=== PATIENT | female | born 1990 | race Caucasian/White ===

== ENCOUNTER 2023-09-20 21:02 | Outpatient (CLI) | payer BC, SELFPAY ==
[2023-09-20 21:21] VITALS: PULSE 77; O2SAT 97
[2023-09-20 21:22] VITALS: BP 133/82; PULSE 65; RESP 14; TEMP 36.8
[2023-09-20 21:29] VITALS: BMI 29.1
[2023-09-20 23:00] VITALS: PULSE 69; O2SAT 99
--- NOTE | 2023-09-21 07:23 | OB.TRI.NOTE ---
HPI - General HPI Narrative FAVIAN MEDLEY, is a 32 F who presents for contractions. Patient reports starting contractions ealier in the day which continued to progress in strength and frequency. Denies any loss of fluid or vaginal bleeding. Maternal Data Information MAYELIN Calculator Estimated Delivery Date Method Current WG Current Estimate 09/28/23 Manual 39w 0d PFSH PFSH Home Medications ?Medication ?Instructions ?Recorded ?Last Taken ?Type aspirin 81 mg tablet,delayed 81 mg PO DAILY 09/20/23 Unknown History release (Adult Aspirin Regimen) vit no.95-ferrous 1 tab PO DAILY 09/20/23 Unknown History fumarate 28 mg-folic acid 800 mcg tablet ( Multivitamins) Allergy/AdvReac Type Severity Reaction Status Date / Time nitrous oxide Allergy Nausea Verified 09/20/23 21:26 ROS Eyes Eyes: Denies blurry vision Cardiovascular Cardiovascular: Reports none; Denies chest pain at rest, chest pain with activity or dizziness Respiratory/Chest Respiratory/Chest: Denies cough or dyspnea Gastrointestinal Gastrointestinal: Reports none and other; Denies diarrhea or vomiting Genitourinary Genitourinary: Denies dysuria Musculoskeletal Musculoskeletal: Reports none Integumentary Integumentary: Reports none; Denies rash Neurologic Neurologic: Denies dizziness, headache(s) or other visual disturbances Psychiatric Psychiatric: Reports none Physical Exam Const alert and no apparent distress General Appearance: cooperative Orientation / Consciousness: awake Exam Limitations: no limitations HEENT normocephalic Eyes General Eye: normal appearance of both eyes Neck full ROM Chest inspection of chest normal Resp normal respiratory effort and normal air movement Effort and Inspection: symmetric chest movement Auscultation: clear to auscultation bilaterally Cardio regular rate GI soft to palpation, non-tender and non-distended Inspection: and other Back/Spine normal ROM Extremity full ROM, normal capillary refill and no calf tenderness Skin no rashes or lesions noted Neuro oriented x3 and CN's II-XII intact bilaterally Psych mental status grossly normal NST FHR Rate Baby A Baseline: 135 Variability:: Moderate Accelerations:: 15 x 15 Decelerations:: None NST Reactive:: Yes FHR Category:: Category I Uterine Activity:: Irregular Assessment & Plan (1) 38 weeks gestation of : (2) Uterine contractions: PLAN: Plan NST reactive CE 1.5cm CE unchanged after extended monitoring D/C home with labor precautions and instructions to follow up in office this week
== END 2023-09-20 23:42 | disposition home or self-care (01) ==
LOC: WPOUT 21:11 → WP 21:12
PROVIDERS: Referring Provider Advanced Practice Midwife; Visit Provider Advanced Practice Midwife
DX: O47.1 False labor at or after 37 completed weeks of gestation (principal); Z79.82 Long term (current) use of aspirin; Z3A.38 38 weeks gestation of pregnancy
CPT/HCPCS: 59025; 59050; 99221; G0378

== ENCOUNTER 2023-09-22 03:20 | Inpatient (IN) | payer BC, SELFPAY ==
[2023-09-22] VITALS (64 sets, daily range): BP systolic 96–201; BP diastolic 51–148; PULSE 60–123; RESP 14–17; TEMP 36.1–37.9; O2SAT 93–100; BMI 29.2
[2023-09-22] MEDS: Lactated Ringers 1,000 ML 50 ML IV (01:15)
[2023-09-22] MEDS: Lactated Ringers 1,000 ML 999 ML IV (03:25)
[2023-09-22 03:34] LABS: Absolute Lymphocyte Count 1.65 X10^3/uL (0.83-4.51); Absolute Neutrophil Count 6.7 X10^3/uL (2.0-7.7); Basophil# 0.04 X10^3/uL; Basophil% 0.4 % (0-1); Eosinophil# 0.06 X10^3/uL; Eosinophils% 0.6 % (0-5); Hematocrit 39.4 % (37-47); Hemoglobin 12.7 g/dL (12.0-15.0); Lymphocyte # 1.65 X10^3/ul (0.83-4.51); Lymphocyte % 17.6 % (19-41); Mean Corp Hgb Conc 32.2 g/dL (32-36); Mean Corpuscular Hgb 28.5 pg (27.0-32.0); Mean Corpuscular Volume 88.3 fL (81-99); Mean Platelet Vol. 12.1 fl (6.2-12.0); Monocyte# 0.83 X10^3/uL; Monocyte% 8.9 % (0-10); NRBC Flagged by Analyzer 0 % (0-5); Neutrophil # 6.72 X10^3/uL (2.7-7.7); Platelet Count 231 K/mm3 (150-450); RBC Distribution Width CV 14.6 % (11.6-14.6); RBC Distribution Width SD 46.3 fl (35.1-43.9); Red Blood Count 4.46 M/mm3 (4.2-5.4); White Blood Count 9.4 K/mm3 (4.4-11.0)
[2023-09-22 04:00] LABS: Syphilis Antibodies Non-reactive
[2023-09-22] MEDS: fentaNYL-bupivacaine (epidural) 100 ML BAG EPIDURAL ×3 (04:02→14:14)
--- NOTE | 2023-09-22 06:24 | PCM.HP.OB ---
HPI - General General Date of Admission: 09/22/23 HPI Narrative FAVIAN MEDLEY, is a 32 F who presents at 39w1d in active labor. Maternal Data Information MAYELIN Calculator Estimated Delivery Date Method Current WG Current Estimate 09/28/23 Manual 39w 1d PFSH PFSH Medical History no medical history Home Medications ?Medication ?Instructions ?Recorded ?Last Taken ?Type aspirin 81 mg tablet,delayed 81 mg PO DAILY 09/20/23 Unknown History release (Adult Aspirin Regimen) vit no.95-ferrous 1 tab PO DAILY 09/20/23 Unknown History fumarate 28 mg-folic acid 800 mcg tablet ( Multivitamins) Allergy/AdvReac Type Severity Reaction Status Date / Time nitrous oxide Allergy Nausea Verified 09/22/23 01:22 Surgical History no surgical history Social History Smoking Status: Never smoker History Elective abortions Hx Para 0 Spontaneous abortions Hx # Term Pregnancies Ectopic pregnancies Hx # Pregnancies Multiple births # of living children NST FHR Rate Baby A Baseline: 140 Variability:: Minimal Accelerations:: 15 x 15 Decelerations:: None FHR Category:: Category II Uterine Activity:: Irregular Vital Signs Vital Signs Vital Signs: 09/22/23 01:13 09/22/23 01:13 09/22/23 01:14 Temperature Temperature Source Pulse Rate 70 Respiratory Rate Blood Pressure 131/89 H BP Systolic 131 BP Diastolic 89 Pulse Ox 99 09/22/23 01:14 09/22/23 01:14 09/22/23 01:14 Temperature Temperature Source Temporal Pulse Rate 66 Respiratory Rate 14 Blood Pressure BP Systolic BP Diastolic Pulse Ox 09/22/23 01:14 09/22/23 02:03 09/22/23 02:03 Temperature 98.0 F Temperature Source Pulse Rate 81 Respiratory Rate Blood Pressure BP Systolic BP Diastolic Pulse Ox 97 09/22/23 03:51 09/22/23 03:51 09/22/23 03:56 Temperature Temperature Source Pulse Rate 101 H 83 Respiratory Rate Blood Pressure BP Systolic BP Diastolic Pulse Ox 99 09/22/23 03:56 09/22/23 03:56 09/22/23 03:58 Temperature Temperature Source Pulse Rate Respiratory Rate 16 Blood Pressure 138/86 H BP Systolic 138 BP Diastolic 86 Pulse Ox 100 09/22/23 03:58 09/22/23 04:00 09/22/23 04:00 Temperature Temperature Source Pulse Rate 107 H 93 Respiratory Rate Blood Pressure 127/77 H BP Systolic 127 BP Diastolic 77 Pulse Ox 09/22/23 04:00 09/22/23 04:01 09/22/23 04:01 Temperature Temperature Source Pulse Rate 79 Respiratory Rate 16 Blood Pressure BP Systolic BP Diastolic Pulse Ox 99 09/22/23 04:04 09/22/23 04:04 09/22/23 04:05 Temperature Temperature Source Pulse Rate 90 Respiratory Rate 16 Blood Pressure 133/67 H BP Systolic 133 BP Diastolic 67 Pulse Ox 09/22/23 04:06 09/22/23 04:06 09/22/23 04:09 Temperature Temperature Source Pulse Rate 82 Respiratory Rate Blood Pressure 117/69 BP Systolic 117 BP Diastolic 69 Pulse Ox 100 09/22/23 04:09 09/22/23 04:09 09/22/23 04:09 Temperature Temperature Source Temporal Pulse Rate 83 Respiratory Rate 16 Blood Pressure BP Systolic BP Diastolic Pulse Ox 09/22/23 04:09 09/22/23 04:10 09/22/23 04:11 Temperature 98.1 F Temperature Source Pulse Rate 86 Respiratory Rate 16 Blood Pressure BP Systolic BP Diastolic Pulse Ox 09/22/23 04:11 09/22/23 04:15 09/22/23 04:16 Temperature Temperature Source Pulse Rate 73 Respiratory Rate 16 Blood Pressure BP Systolic BP Diastolic Pulse Ox 100 09/22/23 04:16 09/22/23 04:19 09/22/23 04:19 Temperature Temperature Source Pulse Rate 99 Respiratory Rate Blood Pressure 106/70 BP Systolic 106 BP Diastolic 70 Pulse Ox 99 09/22/23 04:21 09/22/23 04:21 09/22/23 04:21 Temperature Temperature Source Pulse Rate 69 Respiratory Rate 16 Blood Pressure BP Systolic BP Diastolic Pulse Ox 100 09/22/23 04:24 09/22/23 04:24 09/22/23 04:25 Temperature Temperature Source Pulse Rate 95 Respiratory Rate 16 Blood Pressure 110/73 BP Systolic 110 BP Diastolic 73 Pulse Ox 09/22/23 04:26 09/22/23 04:26 09/22/23 04:31 Temperature Temperature Source Pulse Rate 68 69 Respiratory Rate Blood Pressure BP Systolic BP Diastolic Pulse Ox 100 09/22/23 04:31 09/22/23 04:36 09/22/23 04:36 Temperature Temperature Source Pulse Rate 93 Respiratory Rate Blood Pressure BP Systolic BP Diastolic Pulse Ox 100 100 09/22/23 04:41 09/22/23 04:41 09/22/23 04:46 Temperature Temperature Source Pulse Rate 67 60 Respiratory Rate Blood Pressure BP Systolic BP Diastolic Pulse Ox 99 09/22/23 04:46 09/22/23 04:51 09/22/23 04:51 Temperature Temperature Source Pulse Rate 63 Respiratory Rate Blood Pressure BP Systolic BP Diastolic Pulse Ox 98 98 09/22/23 04:56 09/22/23 04:56 09/22/23 04:57 Temperature Temperature Source Pulse Rate 70 Respiratory Rate 16 Blood Pressure BP Systolic BP Diastolic Pulse Ox 99 09/22/23 04:58 09/22/23 04:58 09/22/23 05:58 Temperature Temperature Source Pulse Rate 83 73 Respiratory Rate Blood Pressure 107/60 BP Systolic 107 BP Diastolic 60 Pulse Ox 09/22/23 05:58 09/22/23 05:58 09/22/23 06:00 Temperature Temperature Source Pulse Rate Respiratory Rate Blood Pressure 96/51 L BP Systolic 96 BP Diastolic 51 Pulse Ox 93 97 09/22/23 06:00 09/22/23 06:00 Temperature Temperature Source Pulse Rate 61 Respiratory Rate 16 Blood Pressure BP Systolic BP Diastolic Pulse Ox Weight Weight: 176 lb Body Mass Index (BMI) 29.2 Physical Exam Const alert and oriented x3 General Appearance: cooperative Orientation / Consciousness: awake, oriented to person, oriented to place and oriented to time Exam Limitations: no limitations HEENT normocephalic Head and Scalp: normal to inspection, normocephalic and atraumatic Face and Sinus: normal facial exam Eyes General Eye: normal appearance of both eyes Neck full ROM Chest Chest: symmetrical chest wall rise Resp normal respiratory effort and normal air movement Auscultation: clear to auscultation bilaterally Cardio regular rate, regular rhythm, S1 normal heart sound, S2 normal heart sound, no murmurs, no rub, no gallops and no clicks GI normal to inspection, nondistended, normoactive bowel sounds and non-tender appearance of the vagina normal Bladder / Kidney Exam: no CVA tenderness Back/Spine normal ROM Extremity normal to inspection and full ROM Skin no rashes or lesions noted Neuro oriented x3 and moves all extremities Sensorium / Orientation: awake, alert and oriented to person Motor Exam: clonus absent Deep Tendon Reflexes: Rt Patellar (L4): 2+ and Lt Patellar (L4): 2+ Labs Labs Labs: Blood Type A POSITIVE Antibody Screen NEGATIVE Hct 39.4 % (37-47) Hgb 12.7 g/dL (12.0-15.0) Syphilis Total Ab Non-reactive GBS negative GC/CT negative HIV negative HBsAG negative HepC negative RPR negative Rubella immune 1hr GCT 122 normal A positive Assessment & Plan (1) Active labor at term: (2) 39 weeks gestation of : (3) Nulliparity: PLAN: Plan 1) Admit to labor and delivery 2) Routine labs 3) Continuous EFM 4) Epidural for pain management 5) GBS negative 6) Pitocin for contractions that have spaced out 7) collaborative physician and notified of patient above assessment, plan and status
[2023-09-22] MEDS: Lactated Ringers 1,000 ML 200 ML IV ×2 (09:09→14:14)
[2023-09-22] MEDS: Oxytocin 15 Units/NS 250ml 15 UNITS/250 ML IV.SOLN 2 UNITS IV (10:40)
--- NOTE | 2023-09-22 17:38 | EX.PCM.OBRPT ---
Assessment & Plan (1) (normal spontaneous vaginal delivery): (2) Lactating mother: Maternal Data Information MAYELIN Calculator Estimated Delivery Date Method Current WG Current Estimate 09/28/23 Manual 39w 1d Vaginal Delivery Maternal Presentation Maternal Presentation: Active Labor Operative Information Date of Procedure: 09/22/23 Pre-Operative Diagnosis: Active labor at term Post-Operative Diagnosis: Surgery / Procedure Performed: Spontaneous Vaginal Delivery Type of Anesthesia: Epidural Estimated Blood Loss: 300 ml Time of Delivery: 17:20 Findings Description of Procedure: Progressed to complete with urge to push. Epidural for pain management. of viable male infant over intact perineum. APGARS 8,9 respectively. Infant head delivered with body immediately forthcoming. Placed on maternal abdomen, strong cry. Mouth and nares suctioned for secretions. Pitocin started for active 3rd stage management. Cord doubly clamped and cut by FOB after pulsations ceased, delayed cord clamping. Placenta delivered intact via rose, 3 vessel cord intact. Perineum inspected and revealed intact. Fundus firm and hemostasis achieved. EBL 300ml. Mom and baby stable, planning to breastfeed. Family bonding well. notified of delivery. Presentation: Vertex Amniotic Membrane Rupture Type: Spontaneous Amniotic Fluid Description: Clear Placental Delivery Description: Spontaneous Placenta Disposition: [facility] Cord Vessel Description: 3 Vessels Cord Entanglement: Around neck x 1, loose Nuchal Cord Compression: Without compression Infant A Gender: Female (1 minute): 8 (5 minute): 9 Delayed Cord Clamping: Yes Post Vaginal Delivery Medications Given After Delivery: IV Pitocin Episiotomy Description: None Laceration: None Complication Complications: None
[2023-09-22] MEDS: Ibuprofen 600 MG Tablet PO ×2 (17:55→23:16)
[2023-09-22] MEDS: Oxytocin 15 Units/NS 250ml 15 UNITS/250 ML IV.SOLN 83 UNITS IV (17:58)
[2023-09-22] MEDS: SimETHICONE 80 MG Chewable Tablet PO (18:46)
--- NOTE | 2023-09-22 20:18 | NURSING ---
Epidural catheter removed, blue tip intact.
[2023-09-22] MEDS: 0.9% Saline Lock 10 ML Syringe IV (21:55)
[2023-09-23 00:26] VITALS: BP 108/63; PULSE 81; PULSE 85; RESP 16; TEMP 36.5; O2SAT 97
[2023-09-23 00:27] VITALS: PULSE 90; O2SAT 97
[2023-09-23 05:08] VITALS: BP 116/94; PULSE 84; RESP 16; TEMP 36.1; O2SAT 100
[2023-09-23 05:57] LABS: Absolute Lymphocyte Count 1.23 X10^3/uL (0.83-4.51); Absolute Neutrophil Count 11.6 X10^3/uL (2.0-7.7); Basophil# 0.03 X10^3/uL; Basophil% 0.2 % (0-1); Eosinophil# 0.04 X10^3/uL; Eosinophils% 0.3 % (0-5); Hematocrit 32.5 % (37-47); Hemoglobin 10.4 g/dL (12.0-15.0); Lymphocyte # 1.23 X10^3/ul (0.83-4.51); Lymphocyte % 8.6 % (19-41); Mean Corpuscular Hgb 28.4 pg (27.0-32.0); Mean Corpuscular Volume 88.8 fL (81-99); Mean Platelet Vol. 11.4 fl (6.2-12.0); Monocyte# 1.29 X10^3/uL; NRBC Flagged by Analyzer 0 % (0-5); Neutrophil # 11.62 X10^3/uL (2.7-7.7); Neutrophil % 81.5 % (47-70); Platelet Count 169 K/mm3 (150-450); RBC Distribution Width CV 14.8 % (11.6-14.6); RBC Distribution Width SD 47.7 fl (35.1-43.9); Red Blood Count 3.66 M/mm3 (4.2-5.4); White Blood Count 14.3 K/mm3 (4.4-11.0)
--- NOTE | 2023-09-23 07:58 | PN_ITS ---
Subjective Subjective patient seen at bedside, doing well. Patient reports good pain control. lochia mild. breast feeding well Objective Data Objective Data Vital Signs: Vital Signs Temp Pulse Resp BP Pulse Ox O2 Del Method 97.0 F L 84 16 116/94 H 100 Room Air 09/23/23 05:08 09/23/23 05:08 09/23/23 05:08 09/23/23 05:08 09/23/23 05:08 09/23/23 05:08 Oxygen Delivery Method Room Air Weight: 79.832 kg Body Mass Index (BMI) 29.2 Intake & Output: Intake and Output for Last 24 Hours 09/21/23 09/22/23 09/23/23 23:59 23:59 23:59 Intake Total 4097.21 / 4097.21 Output Total 1300 / 1300 1100 / 1100 Balance 2797.21 / 2797.21 -1100 / -1100 Lab / Micro Data 09/23/23 05:15 Labs: Laboratory Results - last 24 hr 09/23/23 05:15: WBC 14.3 H, RBC 3.66 L, Hgb 10.4 L, Hct 32.5 L, MCV 88.8, MCH 28.4, MCHC 32.0, RDW Std Deviation 47.7 H, RDW Coeff of Helen 14.8 H, Plt Count 169, MPV 11.4, Immature Gran % (Auto) 0.400, Neut % (Auto) 81.5 H, Lymph % (Auto) 8.6 L, [place] % (Auto) 9.0, Eos % (Auto) 0.3, Baso % (Auto) 0.2, Absolute Neuts (auto) 11.6 H, Absolute Lymphs (auto) 1.23, Nucleated RBC % 0 Physical Exam Const alert and oriented x3 General Appearance: cooperative HEENT normocephalic Neck General: normal visual inspection GI soft to palpation and non-distended GI Narrative: Fundus firm Extremity normal to inspection and no calf tenderness Skin no rashes or lesions noted Neuro oriented x3 and CN's II-XII intact bilaterally Psych mental status grossly normal Assessment & Plan Assessment/Plan (1) (normal spontaneous vaginal delivery): (2) Lactating mother: PLAN: Plan PPD#1 , Doing well Routine care pain mgmt ambulation dc home time spent on day of discharge face to face with patient <30min
--- NOTE | 2023-09-23 07:59 | DCINST_ITS ---
Discharge Instructions Diet Discharge Diet: No restrictions Activity May resume sexual activity in: 6-8 weeks Dressing / Incision Call your doctor if you observe: Fever of 101 or Higher, Inability to urinate, Using more than 1 pad per hour and Uncontrolled pain Follow Up Care Please Follow Up With: Belinda Lizama MD When: 1-2 weeks post and again at 6 weeks post . [phone] Test Results: Test results from this visit will be discussed in further detail at your follow- up appointment, if applicable. Discharge Plan Admission Admit Date/Time: 09/22/23 03:20 Attending Provider: Miesha Cline Primary Care Provider: Care Physician,No Primary Discharge Orders/Prescriptions Prescriptions: Continued PNV cmb#95-ferrous fumarate-FA [ Multivitamins] 28 mg iron- 800 mcg tablet 1 tab PO DAILY Discontinued aspirin [Adult Aspirin Regimen] 81 mg tablet,delayed release (DR/EC) 81 mg PO DAILY Referrals / Follow Up: Care Physician,No Primary [Primary Care Provider] - Disposition Disposition (needs filled in before D/C Order can be placed): Home, Self Care
[2023-09-23 08:30] VITALS: BP 120/85; PULSE 72; RESP 16; TEMP 36.1; O2SAT 97
[2023-09-23 12:30] VITALS: BP 120/88; PULSE 90; RESP 18; TEMP 36.9; O2SAT 97
[2023-09-23 16:35] VITALS: BP 122/65; PULSE 99; RESP 16; TEMP 36.6; O2SAT 98
== END 2023-09-23 19:15 | disposition home or self-care (01) | DRG 807 ==
LOC: WPOUT 03:21 → WP 03:21
PROVIDERS: Admitting Provider Advanced Practice Midwife; Referring Provider Advanced Practice Midwife; Visit Provider Advanced Practice Midwife
DX: O69.81X0 Labor and delivery complicated by cord around neck, without compression, not applicable or unspecified (principal); Z37.0 Single live birth; Z3A.39 39 weeks gestation of pregnancy; Z79.82 Long term (current) use of aspirin
CPT/HCPCS: 59025; 59050; 85025; 86780; 86850; 86900; 86901; 99221; J7120; A4216; G0378